=== PATIENT | female | born 1950 | race Caucasian/White ===

== ENCOUNTER 2018-03-19 08:59 | Inpatient (IN) | payer OTHER ==
[~2018-03-19] VITALS: Ht 165.1 cm; Wt 113.6 kg
--- NOTE | ~2018-03-19 | EC ---
PATIENT:ANICETO GONZALES DATE OF SERVICE: 03/19/18 SEX: F MEDICAL RECORD: [id number] DATE OF : [birth year] LOCATION:[facility] AGE OF PATIENT: 68 ADMISSION DATE: 03/19/18 REFERRING PHYSICIAN: INTERPRETING PHYSICIAN: MADISYN GARCIA MD ECHOCARDIOGRAM REPORT ECHO CHARGES 4 ECHO COMPLETE Date: 03/20 CLINICAL DIAGNOSIS: CHF ECHOCARDIOGRAPHIC MEASUREMENTS (adult normal given) AC root (d.<3.7cm) 3.2 cm LV Septum d (<1.2 cm> 1.3 cm Valve Excursion 1.6 cm LV Septum (systole) 1.5 cm Left Atria (s.<4.0cm> 3.5 cm LVPW d(<1.2cm) 1.4 cm RV (d.<2.3cm) 3.8 cm LVPW (sytole) 1.6 cm LV diastole(<5.6CM) 5.0 cm MV E-F(>70mm/sec) cm LV systole 4.0 cm LVOT Diameter 1.8 cm MV exc.(>10mm) 1.5 cm Est.ejection fraction (50-75%) % DOPPLER: LVIT cm/sec A 95.0 cm/sec E 84.0 cm/sec LA cm/sec RVSP 26 mmHg LVOT 137 cm/sec AOP1/2T m/s Asc. Ao 179 cm/sec RVOT 138 cm/sec RA cm/sec PA 189 cm/sec AV Gradient Peak 12.86mmHg AV Mean 6.92 mmHg AV Area 2.0 cm MV Gradient Peak 4367 mmHg MV Mean 2.13 mmHg MV Area cm COMMENTS: Education Program Specialist: 2 DISHA RAMIREZ Ancillary Services Manager Therapy: 4 Dr. Garcia TAPE# PACS Pericardial Effusion N DATE OF SERVICE: PROCEDURE: Transthoracic echocardiogram. FINDINGS: 1. Left ventricle has mild left ventricular hypertrophy with inflow characteristics consistent with diastolic dysfunction. Overall, ejection fraction is 60%. Left atrium is normal size, shape, and function. 2. The aortic valve is normal. 3. The mitral valve is normal. ECHOCARDIOGRAM REPORT [id number] ANICETO GONZALES 4. The tricuspid valve is normal. 5. The right ventricle is mildly dilated with normal function. 6. The right atrium is mildly dilated. 7. The pulmonic valve is grossly normal. CONCLUSIONS: The patient has evidence of hypertensive heart disease with left ventricular function well preserved. TRANSINT:[id number] Voice Confirmation ID: [id number] DOCUMENT ID: [id number] MADISYN GARCIA MD CC: [id number] DICTATION DATE: 03/24/18744 BENCH LAY OUT TECHNICIAN: 03/24/18920 DIS IN 03/20/18 [place] [id number] [place] [id number]
[2018-03-19 10:19] LABS: BASOPHILS 0.4 % (0-2); EOSINOPHILS 1.8 % (0-7); HEMATOCRIT 38.6 % (36.0-48.0); IMMATURE GRANULOCYTES 0.3 % (0-5); LYMPHOCYTES 20.4 % (15-50); MCH 30.2 pg (26.0-34.0); MCHC 33.7 g/dL (31.0-37.0); MCV 89.6 fL (80.0-100.0); MEAN PLATELET VOLUME 9.9 fL (7.4-10.4); MONOCYTES 11.5 % (2-11); NEUTROPHILS 65.6 % (40-80); PLATELET COUNT 178 10x3/uL (130-400); RBC 4.31 10x6/uL (4.00-5.40); RDW 14.1 % (11.5-14.5); WBC 7.1 10x3/uL (4.8-10.8)
[2018-03-19 10:26] LABS: APPEARANCE CLEAR (CLEAR); BILIRUBIN NEGATIVE (NEGATIVE); COLOR YELLOW (YELLOW); GLUCOSE NEGATIVE (NEGATIVE); KETONE NEGATIVE (NEGATIVE); NITRITE NEGATIVE (NEGATIVE); PROTEIN NEGATIVE (NEGATIVE); UROBILINOGEN NORMAL (NORMAL)
[2018-03-19 10:27] LABS: RED CELLS - URINE 0-5 /hpf (0-5); WHITE CELLS - URINE OCC /hpf (0-5)
[2018-03-19 10:46] LABS: ALBUMIN 3.6 g/dL (3.4-5.0); ALKALINE PHOSPHATASE 74 U/L (46-116); ALT (SGPT) 34 U/L (10-68); BILIRUBIN - TOTAL 0.37 mg/dL (0.2-1.3); CALC OSMOLALITY 280 mosm/kg (275-300); CALCIUM 9.8 mg/dL (8.5-10.1); CARBON DIOXIDE 31.8 mmol/L (21.0-32.0); CHLORIDE - SERUM 104 mmol/L (98-107); CREATININE - SERUM 0.8 mg/dL (0.6-1.3); GLUCOSE 122 mg/dL (74-106); SODIUM 141 mmol/L (136-145); UREA NITROGEN 10 mg/dL (7-18); eGFR NON AFRICAN AMERICAN 76 mL/min (90-120)
[2018-03-19 11:00] LABS: CKMB 5.6 U/L (0.0-3.6); CREATINE KINASE 1689 UL (21-215); PRO BNP 486 pg/mL (0-125); TROPONIN-I < 0.017 ng/mL (0.000-0.060)
[2018-03-19] MEDS ORDERED: FUROSEMIDE20 MG PO (16:03)
[2018-03-19] MEDS ORDERED: ZYRTEC10 MG PO (16:04)
[2018-03-19] MEDS ORDERED: TRAMADOL HCL E100 M1 PO (16:04)
[2018-03-19] MEDS ORDERED: LYRICA150 MG PO (16:05)
[2018-03-19] MEDS ORDERED: TENORMIN25 MG PO (16:05)
[2018-03-19] MEDS ORDERED: ZANAFLEX2 M1 PO (16:06)
[2018-03-19] MEDS ORDERED: LEVAQUIN500 MG PO (16:08)
[2018-03-19] MEDS ORDERED: PROAIR HFA8.5 GM INH (16:09)
[2018-03-19] MEDS ORDERED: BREO ELLIPTA 11 EACH INH (16:10)
[2018-03-19 16:13] VITALS: BP 157/95; Ht 165.1 cm; Wt 113.6 kg
[2018-03-19 16:17] VITALS: BP 175/95
[2018-03-19] MEDS ORDERED: VIRTUSSIN PO (16:20)
[2018-03-19 23:04] VITALS: BP 176/78
[2018-03-20 04:33] VITALS: BP 178/84
[2018-03-20 08:42] VITALS: BP 150/82
[2018-03-20 12:45] VITALS: BP 169/90
[2018-03-20 13:29] LABS: BASOPHILS 0.5 % (0-2); EOSINOPHILS 0.4 % (0-7); HEMATOCRIT 37.7 % (36.0-48.0); HEMOGLOBIN 12.7 g/dL (12-16); IMMATURE GRANULOCYTES 0.4 % (0-5); LYMPHOCYTES 23.8 % (15-50); MCH 30.2 pg (26.0-34.0); MCHC 33.7 g/dL (31.0-37.0); MCV 89.5 fL (80.0-100.0); MEAN PLATELET VOLUME 9.9 fL (7.4-10.4); MONOCYTES 10.1 % (2-11); NEUTROPHILS 64.8 % (40-80); PLATELET COUNT 207 10x3/uL (130-400); RBC 4.21 10x6/uL (4.00-5.40); RDW 14.1 % (11.5-14.5); WBC 7.8 10x3/uL (4.8-10.8)
[2018-03-20 13:40] LABS: CALC OSMOLALITY 285 mosm/kg (275-300); CALCIUM 9.2 mg/dL (8.5-10.1); CARBON DIOXIDE 30.6 mmol/L (21.0-32.0); CHLORIDE - SERUM 104 mmol/L (98-107); CREATININE - SERUM 0.8 mg/dL (0.6-1.3); GLUCOSE 116 mg/dL (74-106); POTASSIUM - SERUM 3.6 mmol/L (3.5-5.1); SODIUM 143 mmol/L (136-145); eGFR NON AFRICAN AMERICAN 76 mL/min (90-120)
[2018-03-20] MEDS ORDERED: FUROSEMIDE20 MG PO (13:43)
[2018-03-20] MEDS ORDERED: VIBRAMYCIN 100100 MG PO (13:43)
[2018-03-20 13:49] LABS: UREA NITROGEN 13 mg/dL (7-18)
== END 2018-03-20 15:22 | disposition home or self-care (01) | DRG 603 ==
LOC: D.ER 08:59 → D.EDHOLD 14:00 → D.MS 15:02
PROVIDERS: Family Medicine; Internal Medicine Nephrology
DX: L03.116 Cellulitis of left lower limb (principal); Z68.41 Body mass index [BMI] 40.0-44.9, adult; I87.2 Venous insufficiency (chronic) (peripheral); I10 Essential (primary) hypertension